=== PATIENT | male | born 1940 | race Caucasian/White ===

== ENCOUNTER 2018-12-11 12:51 | Observation (INO) | payer OTHER ==
[~2018-12-11] VITALS: Ht 177.8 cm; Wt 98.0 kg
[2018-12-11] MEDS ORDERED: SODIUM CHLORIDE 0.9% 1000ML 1,000 ML IV ONE (13:17)
[2018-12-11] MEDS ORDERED: IPRATROPIUM/ALBUTEROL SULFATE 3 ML SOLUTION IH ONE (13:20)
[2018-12-11 13:39] LABS: BASOPHILS % (AUTO) 1.4 % (0.0-5.0); EOSINOPHILS % (AUTO) 0.2 % (0.0-8.0); HEMATOCRIT 41.7 % (42-54); LYMPHOCYTES % (AUTO) 12.9 % (21.0-51.0); MEAN CORPUSCULAR HEMOGLOBIN 30.1 pg (27.0-33.0); MEAN CORPUSCULAR HGB CONC 33.6 g/dL (32.0-36.0); MEAN CORPUSCULAR VOLUME 89.6 fL (79-99); MONOCYTES % (AUTO) 6.8 % (3.0-13.0); NEUTROPHILS % (AUTO) 78.7 % (40.0-77.0); PLATELET COUNT (AUTO) 138 K/uL (130-400); RED BLOOD CELL COUNT(AUTO) 4.66 MIL/uL (4.50-6.20); RED CELL DISTRIBUTION WIDTH 13.3 % (11.0-15.5); WHITE BLOOD COUNT (AUTO) 9.7 K/uL (4.8-10.8)
[2018-12-11] MEDS ORDERED: METHYLPREDNISOLONE SOD SUCC 125MG/2ML VIAL ONE (13:46)
[2018-12-11] MEDS ORDERED: ZOSYN 3.375GM+NS 50ML 50 ML IV ONE (13:47)
[2018-12-11 13:55] LABS: POTASSIUM 4.3 mmol/L (3.5-5.1)
[2018-12-11 13:57] LABS: PARTIAL THROMBOPLASTIN TIME 28.4 SEC (26.3-35.5); PROTHROMBIN TIME 10.5 SEC (9.6-11.6)
[2018-12-11] MEDS ORDERED: CEFEPIME HCL 1 GM VIAL ONE (16:08)
[2018-12-11] MEDS ORDERED: SODIUM CHLORIDE 0.9% 100 ML IV ONE (16:09)
[2018-12-11 16:24] LABS: APPEARANCE,URINE Clear (CLEAR); BILIRUBIN,URINE Negative (NEGATIVE); COLOR,URINE Yellow (YELLOW); GLUCOSE, URINE (UA) Negative (NEGATIVE); KETONES,URINE Trace mg/dL (NEGATIVE); LEUKOCYTE ESTERASE ,URINE Small (NEGATIVE); NITRATE,URINE Negative (NEGATIVE); OCCULT BLOOD,URINE Negative (NEGATIVE); PROTEIN,URINE Negative (NEGATIVE)
[2018-12-11] MEDS: DOXYCYCLINE 100MG+NS 250ML 250 ML IV SCH (16:30)
[2018-12-11 16:34] LABS: BACTERIA,URINE Few /HPF (None Seen); RBC,URINE None Seen /HPF (0-1); SQUAMOUS EPITHELIAL CELL,UR None Seen /HPF (0-2)
[2018-12-11] MEDS: IPRATROPIUM/ALBUTEROL SULFATE 3 ML SOLUTION IH SCH ×2 (18:00→23:18)
[2018-12-11] MEDS ORDERED: [UNRECOGNIZED DRUG - OTHER] IV ONE (18:19)
[2018-12-11] MEDS ORDERED: DOXYCYCLINE 100 MG IV ONE (18:19)
[2018-12-11] MEDS: CEFEPIME HCL 1 GM VIAL IVP SCH (19:00)
[2018-12-11 20:00] VITALS: BP 123/63
[2018-12-12] VITALS: BP 121/63
[2018-12-12] MEDS ORDERED: LISI-613 PO (01:53)
[2018-12-12] MEDS ORDERED: GABA-529 PO (01:53)
[2018-12-12] MEDS ORDERED: CARB-101 PO ×4 (01:53)
[2018-12-12] MEDS: CEFEPIME HCL 1 GM VIAL IVP SCH ×3 (02:06→20:46)
[2018-12-12] MEDS ORDERED: GUAIFENESIN-DM 200/20 MG 10 ML ONE (02:06)
[2018-12-12] MEDS ORDERED: GUAIFENESIN-DM 200/20 MG 10 ML PO ONE (02:15)
[2018-12-12] MEDS: DOXYCYCLINE 100MG+NS 250ML 250 ML IV SCH ×2 (02:28→17:29)
[2018-12-12 04:00] VITALS: BP 107/63
[2018-12-12 06:33] LABS: ALBUMIN 2.9 g/dL (3.5-5.0); BILIRUBIN,TOTAL 0.5 mg/dL (0.2-1.0); CREATININE 0.9 mg/dL (0.5-1.5); MAGNESIUM 1.9 mg/dL (1.80-2.40); POTASSIUM 3.9 mmol/L (3.5-5.1); TOTAL PROTEIN, SERUM 6.5 g/dL (6.0-8.3)
[2018-12-12] MEDS: IPRATROPIUM/ALBUTEROL SULFATE 3 ML SOLUTION IH SCH ×4 (07:20→23:18)
--- NOTE | 2018-12-12 08:00 | NUR ---
LEFT EYE PROSTHESIS Addendum: 12/12/18 at 1142 by BRANDON VELASCO RN RN Amended: Links added.
--- NOTE | 2018-12-12 08:05 | NUR ---
DR OROZCO ROUNDED ON PATIENT ORDERS RECEIVED FOR LAXATIVES.
[2018-12-12 08:27] VITALS: BP 109/55
[2018-12-12] MEDS: CARBIDOPA-LEVODOPA 25-100 TAB PO SCH ×4 (10:29→20:47)
[2018-12-12] MEDS: LISINOPRIL 20 MG TABLET PO SCH (10:29)
[2018-12-12] MEDS: GABAPENTIN 100 MG CAPSULE PO SCH (10:29)
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
[2018-12-12 12:15] VITALS: BP 104/54
[2018-12-12 17:04] VITALS: BP 117/64
[2018-12-12] MEDS ORDERED: BICA50TA7 PO (17:27)
--- NOTE | 2018-12-12 17:30 | NUR ---
INITIAL Met w pt and spouse and firend. Pt is aaox3, hx parkinson so speech is a little slow; blind in one eye. states no mobility problems, but has new ramp in home- has wkr but does not use; bathroom handicapped equipped; no hh/proivder; still drives 2 x /week; lives w spouse ally who will provide transport DCP home. Addendum: 12/12/18 at 1843 by VASU PORTILLO RN CM Amended: Links added.
[2018-12-12 20:00] VITALS: BP 121/68
[2018-12-12] MEDS ORDERED: DOCUSATE SODIUM 100 MG CAP PO PRN (21:30)
[2018-12-13] VITALS (7 sets, daily range): BP systolic 127–161; BP diastolic 66–91
[2018-12-13] MEDS: CEFEPIME HCL 1 GM VIAL IVP SCH ×2 (04:13→11:32)
[2018-12-13] MEDS: DOXYCYCLINE 100MG+NS 250ML 250 ML IV SCH (04:13)
[2018-12-13] MEDS: IPRATROPIUM/ALBUTEROL SULFATE 3 ML SOLUTION IH SCH ×4 (06:59→21:55)
[2018-12-13] MEDS: BICALUTAMIDE 50 MG PO SCH (09:00)
[2018-12-13] MEDS: CARBIDOPA-LEVODOPA 25-100 TAB PO SCH ×4 (09:14→21:30)
[2018-12-13] MEDS: LISINOPRIL 20 MG TABLET PO SCH (09:14)
[2018-12-13] MEDS: POLYETHYLENE GLYCOL 3350 17 GM POWD.PACK PO SCH (09:15)
[2018-12-13] MEDS: GABAPENTIN 100 MG CAPSULE PO SCH (09:15)
[2018-12-13] MEDS: DOXYCYCLINE HYCLATE 100 MG TABLET PO SCH (21:30)
[2018-12-14 07:00] VITALS: BP 137/65
[2018-12-14] MEDS: BICALUTAMIDE 50 MG PO SCH (09:00)
[2018-12-14] MEDS: DOXYCYCLINE HYCLATE 100 MG TABLET PO SCH (09:58)
[2018-12-14] MEDS: POLYETHYLENE GLYCOL 3350 17 GM POWD.PACK PO SCH (09:58)
[2018-12-14] MEDS: GABAPENTIN 100 MG CAPSULE PO SCH (09:58)
[2018-12-14] MEDS: CARBIDOPA-LEVODOPA 25-100 TAB PO SCH ×2 (09:59→13:10)
[2018-12-14] MEDS: IPRATROPIUM/ALBUTEROL SULFATE 3 ML SOLUTION IH SCH ×2 (09:59→11:10)
[2018-12-14] MEDS: LISINOPRIL 20 MG TABLET PO SCH (09:59)
[2018-12-14 11:00] VITALS: BP 149/80
--- NOTE | 2018-12-14 15:25 | NUR ---
DISCHARGE PATIENT GIVEN DISCHARGE INSTRUCTIONS VIA TEACH BACK. PATIENT TRANSFERRING TO [facility] TODAY FOR PHYSICAL THERAPY AND ORAL ANTIBIOTICS X 7 DAYS. ISAC DODD (TRANSPORTER) FROM [facility] PRESENT TO TRANSFER PATIENT VIA WHEEL CHAIR FROM FLOOR. 20G PIV TO RFA DISCONTINUED, TIP INTACT. TELE PACK REMOVED AND RETURNED TO TELEMETRY.
== END 2018-12-14 15:29 ==
LOC: EDH 12:51 → EDHIP 14:58 → 3CH 20:14
PROVIDERS: ADMIT Internal Medicine Critical Care Medicine; ATTEND Internal Medicine Critical Care Medicine
DX: J20.9 Acute bronchitis, unspecified (principal); K27.9 Peptic ulcer, site unspecified, unspecified as acute or chronic, without hemorrhage or perforation; I10 Essential (primary) hypertension; E78.5 Hyperlipidemia, unspecified; Z87.891 Personal history of nicotine dependence; Z88.1 Allergy status to other antibiotic agents; Z88.5 Allergy status to narcotic agent; Z85.46 Personal history of malignant neoplasm of prostate; Z88.8 Allergy status to other drugs, medicaments and biological substances; Z87.442 Personal history of urinary calculi; Z79.899 Other long term (current) drug therapy
CPT/HCPCS: 36415 ×2; 71045; 80048; 80053; 81001; 83605; 83735; 83880; 84484; 85025; 85610; 85730; 87040 ×2; 87804 ×2; 92610; 93005; 94640 ×11; 94664; 96365; 96366; 96375; 96376 ×2; 97039 ×2; 97116 ×2; 97161; 99284; G0378 ×70; G8978; G8979; G8980; G8981; G8982; G8983; J0692 ×6; J2543; J2930; J3490 ×4; J7030

== ENCOUNTER 2022-07-03 01:23 | Emergency (ER) | payer MEDICARE, MEDICAID ==
[~2022-07-03 01:23] MED LIST: BICA50TA7 PO; CARB-336 PO; GABA-529 PO; LISI20TA24 PO
[2022-07-03 01:58] LABS: BASOPHILS % (AUTO) 0.3 % (0.0-5.0); EOSINOPHILS % (AUTO) 0.6 % (0.0-8.0); LYMPHOCYTES % (AUTO) 23.2 % (21.0-51.0); MEAN CORPUSCULAR HEMOGLOBIN 32.6 pg (27.0-33.0); MEAN CORPUSCULAR VOLUME 105.1 fL (79-99); MONOCYTES % (AUTO) 10.1 % (3.0-13.0); NEUTROPHILS % (AUTO) 61.4 % (40.0-77.0); PLATELET COUNT (AUTO) 193 K/uL (130-400); RED BLOOD CELL COUNT(AUTO) 2.76 MIL/uL (4.50-6.20); RED CELL DISTRIBUTION WIDTH 13.5 % (11.0-15.5); WHITE BLOOD COUNT (AUTO) 6.8 K/uL (4.8-10.8)
[2022-07-03] MEDS ORDERED: LACTATED RINGERS 1000ML 1,000 ML IV ONE (02:00)
[2022-07-03] MEDS ORDERED: IOHEXOL 350 MG/ML 100ML INFUS..BTL IV ONE (02:15)
[2022-07-03 02:19] LABS: CREATININE 1.2 mg/dL (0.5-1.5); POTASSIUM 4.7 mmol/L (3.5-5.1)
[2022-07-03 02:20] LABS: INR 0.98 (0.85-1.15); PROTHROMBIN TIME 10.7 SEC (9.6-11.6)
[2022-07-03 02:22] LABS: PARTIAL THROMBOPLASTIN TIME 28.2 SEC (26.3-35.5)
[2022-07-03 02:23] LABS: ALBUMIN 2.5 g/dL (3.5-5.0); TOTAL PROTEIN, SERUM 7.4 g/dL (6.0-8.3)
[2022-07-03 07:37] VITALS: BP 133/55
== END 2022-07-03 09:53 | disposition short-term general hospital (02) ==
LOC: EDH 01:23
DX: I63.9 Cerebral infarction, unspecified (principal); I12.9 Hypertensive chronic kidney disease with stage 1 through stage 4 chronic kidney disease, or unspecified chronic kidney disease; N18.9 Chronic kidney disease, unspecified; E78.00 Pure hypercholesterolemia, unspecified; G20 Parkinson's disease; J44.9 Chronic obstructive pulmonary disease, unspecified; K21.9 Gastro-esophageal reflux disease without esophagitis; Z20.822 Contact with and (suspected) exposure to COVID-19; Z85.46 Personal history of malignant neoplasm of prostate; Z85.118 Personal history of other malignant neoplasm of bronchus and lung; Z79.899 Other long term (current) drug therapy; Z98.890 Other specified postprocedural states; R41.82 Altered mental status, unspecified
CPT/HCPCS: 82550; 83721; 84484; 80053; 83880; 85025; 85610; 85730; 82948; 36415; 87635; 71045; 70450; 70496; 70498; 99291; 96360; 93005; C9803; Q9967